=== PATIENT | male | born 1970 | race Caucasian/White ===

== ENCOUNTER 2022-06-05 20:21 | Emergency (ER) | payer BC ==
[~2022-06-05] VITALS: Ht 172.7 cm; Wt 91.6 kg
[2022-06-05] MEDS ORDERED: LIDOCAINE 2% (GLYDO= UROJET) 10 ML JELLY MM ONE ×2 (21:21→21:30)
[2022-06-05] MEDS ORDERED: ONDANSETRON 4 MG/2 ML VIAL ONE (21:23)
[2022-06-05] MEDS ORDERED: HYDROMORPHONE 1 MG/1 ML DISP.SYRIN ONE ×2 (21:24→21:30)
[2022-06-05] MEDS ORDERED: ONDANSETRON 4 MG/2 ML VIAL IV ONE (21:30)
[2022-06-05] MEDS ORDERED: HYDROMORPHONE 1 MG/1 ML DISP.SYRIN IV ONE ×4 (21:30→22:45)
--- NOTE | 2022-06-05 21:37 | NUR ---
patient refused FC insertion
--- NOTE | 2022-06-05 21:40 | NUR ---
Patient is a/ox4, NAD noted
[2022-06-05 21:45] LABS: HEMATOCRIT 34.8 % (36.7-47.1); MEAN CORPUSCULAR HEMOGLOBIN 28.4 uug (23.8-33.4); MEAN CORPUSCULAR VOLUME 85.3 fL (73.0-96.2); PLATELET COUNT (AUTO) 267 K/uL (152-348)
[2022-06-05] MEDS ORDERED: HYDROMORPHONE 2 MG/1 ML DISP.SYRIN ONE ×2 (21:45→22:34)
--- NOTE | 2022-06-05 21:56 | NUR ---
patient is able to walk to the restroom with steady gait
--- NOTE | 2022-06-05 21:58 | NUR ---
Patient wants to step outside and smoke. Dr Cardenas informed.
[2022-06-05 21:59] LABS: ALANINE AMINOTRANSFERASE 16 U/L (16-63); ALKALINE PHOSPHATASE 75 U/L (50-136); ASPARTATE AMINOTRANSFERASE 7 U/L (15-37); BILIRUBIN,DIRECT < 0.1 mg/dL (0.0-0.2); BILIRUBIN,TOTAL 0.3 mg/dL (0.2-1.0); CARBON DIOXIDE 27 mmol/L (21-32); CHLORIDE 104 mmol/L (98-107); CREATININE 0.7 mg/dL (0.6-1.3); GLUCOSE 136 mg/dL (74-106); LIPASE 38 U/L (73-393); POTASSIUM 3.9 mmol/L (3.5-5.1); UREA NITROGEN, BLOOD 16 mg/dL (7-18)
--- NOTE | 2022-06-05 22:00 | NUR ---
Patient walked outside, wants to talk to his son and smoke cigarettes
[2022-06-05 22:08] LABS: *BILIRUBIN,URIN 1+ (NEGATIVE); *BLOOD, URINE 3+ (NEGATIVE); *CLARITY,URINE TURBID (CLEAR); *COLOR,URINE Brown (YELLOW); *KETONES,URINE 4+ (NEGATIVE); LEUKOCYTE ESTERASE ,URINE NEGATIVE (NEGATIVE); NITRITE, URINE NEGATIVE (NEGATIVE); UGLUCOSE NEGATIVE (NEGATIVE)
--- NOTE | 2022-06-05 22:21 | NUR ---
Patient eloped from facility. ER physician notified.
[2022-06-05 22:22] VITALS: BP 125/70
--- NOTE | 2022-06-05 22:29 | NUR ---
Patient came back to ER accompanied by his son
--- NOTE | 2022-06-05 22:40 | NUR ---
no coude tip catheter available. called warehouse examiner Mary
--- NOTE | 2022-06-05 23:03 | NUR ---
coude tip FR 14 catheter inserted.
--- NOTE | 2022-06-05 23:22 | NUR ---
Patient discharged to home in stable condition. Written and verbal after care instructions given. Patient verbalizes understanding of instructions. Stressed follow up or return to ER for worsening s/s. Patient is a/ox4, NAD noted, Patient is able to walk with steady gait. Patient is accompanied by his son
[2022-06-06 00:02] LABS: BACTERIA,URINE MODERATE /HPF (NONE SEEN); RBC,URINE TNTC /HPF (0-3); SQUAMOUS EPITHELIAL CELL,UR FEW /HPF (NONE SEEN)
== END 2022-06-05 23:23 | disposition home or self-care (01) ==
LOC: ER 20:23
DX: G89.4 Chronic pain syndrome (principal); C67.9 Malignant neoplasm of bladder, unspecified; R33.9 Retention of urine, unspecified; R31.0 Gross hematuria; F11.20 Opioid dependence, uncomplicated; F17.210 Nicotine dependence, cigarettes, uncomplicated; Z95.5 Presence of coronary angioplasty implant and graft; K59.00 Constipation, unspecified
CPT/HCPCS: 80076; 80048; 81001; 83690; 85025; 87086; 36415; 51702; 99285; 96374; 96375; 96376; J2405; J1170 ×4